=== PATIENT | female | born 1950 | race Caucasian/White ===

== ENCOUNTER → 2016-06-29 | Outpatient (CLI) | payer BC | LOC: KOH-I 14:16 | DX: M84.372A Stress fracture, left ankle, initial encounter for fracture (principal); S92.062A Displaced intraarticular fracture of left calcaneus, initial encounter for closed fracture | CPT/HCPCS: 73700 ==

== ENCOUNTER → 2016-09-21 | Outpatient (CLI) | payer BC | LOC: KOH-I 15:14 | DX: M84.372A Stress fracture, left ankle, initial encounter for fracture (principal) | CPT/HCPCS: 73700 ==